=== PATIENT | male | born 1970 | race Caucasian/White ===

== ENCOUNTER 2020-06-11 20:20 | Emergency (ER) | payer OTHER ==
[~2020-06-11] VITALS: Ht 175.3 cm; Wt 154.2 kg
[2020-06-11] MEDS ORDERED: METFORMIN HCL500 M3 PO (20:30)
[2020-06-11] MEDS ORDERED: LIPITOR40 MG PO (20:30)
[2020-06-11 21:14] LABS: ABSOLUTE EOSINOPHILS 0.1 thou/uL (0.0-0.7); ABSOLUTE LYMPHOCYTES 2.6 thou/uL (0.8-5.3); ABSOLUTE MONOCYTES 0.7 thou/uL (0.0-1.2); ABSOLUTE NEUTROPHILS 6.3 thou/uL (1.6-8.1); BASOPHILS 0.3 %; EOSINOPHILS 0.6 %; HEMATOCRIT 46.5 % (42.0-52.0); HEMOGLOBIN 16.6 gm/dL (14.0-18.0); LYMPHOCYTES 27.3 %; MCH 30.3 pg (26.0-34.0); MCHC 35.7 g/dL (28.0-37.0); MCV 85.1 fL (80.0-100.0); MPV 10.2 fl. (7.2-11.1); NUCLEATED RBCS 0 /100WBC; PLATELET COUNT* 212 thou/uL (150-400); POLYS 64.8 %; RBC 5.46 mil/uL (4.50-6.00); RDW-CV 13.6 % (10.5-14.5); WBC 9.7 thou/uL (4.0-11.0)
[2020-06-11 21:31] LABS: APTT 25.3 Seconds (25.0-31.3); PROTIME 10.8 Seconds (9.20-11.50)
[2020-06-11 21:35] LABS: CALCIUM 8.6 mg/dL (8.5-10.1); CREATININE 1.3 mg/dL (0.6-1.3); POTASSIUM 3.8 mmol/L (3.5-5.1)
[2020-06-11 21:40] LABS: TOTAL PROTEIN 7.5 g/dL (6.4-8.2)
[2020-06-11 22:39] LABS: URINE BILIRUBIN NEGATIVE (Negative); URINE BLOOD NEGATIVE (Negative); URINE CLARITY CLEAR; URINE COLOR YELLOW; URINE GLUCOSE-RANDOM 2+ (Negative); URINE KETONES TRACE (Negative); URINE LEUKOCYTES-REFLEX NEGATIVE (Negative); URINE NITRITE-REFLEX NEGATIVE (Negative); URINE PROTEIN NEGATIVE (Negative); URINE SPECIFIC GRAVITY 1.025 (1.005-1.030); URINE UROBILINOGEN 0.2 E.U./dl (0.2-1.0)
[2020-06-12] VITALS: BP 122/68
--- NOTE | 2020-06-12 13:22 | EKG ---
[place] [address] ELECTROCARDIOGRAM REPORT Name: AROLDO FRANK Room: [facility]#: [id number] Admission: 06/11/20 Attend Phys: Discharge: 06/12/20 Date of : 68 Date of Service: 06/11/202104 Report #: [id number] THIS REPORT FOR: //name// [facility] ED Test Date: 2020-06-11 Test Time: 21:05:47 Pat Name: AROLDO FRANK Department: Room: Gender: Programming Internship: JOHNNY : 1970 Requested By: Elaine Diggs Order Number: [id number] MD: Quirino Olmstead Measurements Intervals [place] Rate: 84 P: 35 GA: 163 QRS: -36 QRSD: 80 T: 39 QT: 343 QTc: 406 Interpretive Statements Sinus rhythm Left axis deviation No previous ECG available for comparison Electronically Signed On 06-12-2020 13:22:34 CDT by Quirino Olmstead [email or web address] <ELECTRONICALLY SIGNED> By: Quirino Olmstead MD, [facility] 06/12/20 1322 04 04 Quirino Olmstead MD, FACC /EPI
== END 2020-06-12 | disposition home or self-care (01) ==
LOC: M.ERS 20:20
PROVIDERS: Personal Emergency Response Attendant
DX: R07.89 Other chest pain (principal); R20.0 Anesthesia of skin; E11.9 Type 2 diabetes mellitus without complications; E78.5 Hyperlipidemia, unspecified